=== PATIENT | female | born 1985 | race Caucasian/White ===

== ENCOUNTER 2018-06-20 05:40 | Emergency (ER) | payer MEDICARE, MEDICAID ==
[~2018-06-20] VITALS: Ht 160 cm; Wt 52.2 kg
[2018-06-20] MEDS ORDERED: CLONAZEPAM 1 MG1 M1 PO (05:51)
[2018-06-20] MEDS ORDERED: HYDROXYZINE HCL25 M1 PO (05:52)
[2018-06-20 06:17] LABS: BE -12.8 mmol/L (-2 to +3); PO2 61.1 mmHg (75.0-100.0)
[2018-06-20 06:45] LABS: HEMATOCRIT 21.3 % (37.0-47.0); MCH 35.9 pg (26.0-34.0); MCHC 31.6 g/dL (28.0-37.0); MCV 113.7 fL (80.0-100.0); MPV 8.5 fl. (7.2-11.1); NUCLEATED RBCS 0 /100WBC; PLATELET COUNT* 95 thou/uL (150-400); RBC 1.87 mil/uL (4.20-5.00); RDW-CV 14.5 % (10.5-14.5); WBC 11.2 thou/uL (4.0-11.0)
[2018-06-20 06:48] LABS: HEMOGLOBIN 6.7 gm/dL (12.0-15.0)
[2018-06-20 07:04] LABS: ANION GAP 23 mmol/L (7-16); BUN 22 mg/dL (7-18); CHLORIDE 97 mmol/L (98-107); CO2 16 mmol/L (21-32); CREATININE 2.5 mg/dL (0.6-1.3); SODIUM 136 mmol/L (136-145); TROPONIN-I LEVEL <0.06 ng/mL (<0.06)
[2018-06-20 07:07] LABS: ALBUMIN 1.1 g/dL (3.4-5.0); ALKALINE PHOSPHATASE 165 U/L (46-116); AMMONIA 141 umol/L (11-32); LIPASE 29 U/L (73-393); NT-PRO BRAIN NAT PEPTIDE 10098 pg/mL (<300); SGOT 504 U/L (15-37); SGPT 149 U/L (30-65); TOTAL BILIRUBIN 16.7 mg/dL (<0.1-1.0); TOTAL PROTEIN 4.5 g/dL (6.4-8.2)
[2018-06-20 07:09] LABS: GLUCOSE 27 mg/dL (70-99); POTASSIUM 3.4 mmol/L (3.5-5.1)
[2018-06-20 07:22] LABS: PROTIME > 210.1 Seconds (9.20-11.50)
[2018-06-20 07:23] LABS: ABSOLUTE LYMPHOCYTES 1.3 thou/uL (0.8-5.3); ABSOLUTE MONOCYTES 0.2 thou/uL (0.0-1.2); ABSOLUTE NEUTROPHILS 9.6 thou/uL (1.6-8.1); ATYPICAL LYMPHS 5 %; MICROCYTES 2+; PLATELET ESTIMATE DECREASED
[2018-06-20 07:24] LABS: INR > 18.0
[2018-06-20 07:28] LABS: MAGNESIUM 2.2 mg/dL (1.8-2.4)
[2018-06-20 09:37] LABS: URINE BLOOD 3+ (Negative); URINE CLARITY CLEAR; URINE COLOR YELLOW; URINE GLUCOSE-RANDOM TRACE (Negative); URINE KETONES TRACE (Negative); URINE LEUKOCYTES-REFLEX 1+ (Negative); URINE NITRITE-REFLEX NEGATIVE (Negative); URINE PROTEIN 2+ (Negative); URINE SPECIFIC GRAVITY 1.025 (1.005-1.030); URINE UROBILINOGEN 0.2 E.U./dl (0.2-1.0)
[2018-06-20 09:41] LABS: ICTOTEST (BILI CONFIRMATORY) Positive (Negative); URINE BILIRUBIN 3+ (Negative)
[2018-06-20 09:48] LABS: AMP/METHAMP Negative (Negative); BACTERIA-REFLEX >30 Many /HPF (None Seen); BARBITURATES Negative (Negative); BENZODIAZEPINES Negative (Negative); COCAINE Negative (Negative); METHADONE Negative (Negative); MUCUS 4-6 Moderate strn/LPF (None Seen); OPIATES Negative (Negative); PCP Negative (Negative); RENAL EPITHELIAL CELLS 4-10 Moderate /LPF (None Seen); SQUAMOUS >10 Many /LPF (0-3); THC Negative (Negative); URINE RBC >20 Many /HPF (0-2); URINE WBC-REFLEX >25 Many /HPF (0-5)
[2018-06-20 09:49] LABS: CRYSTALS None Seen /LPF (None Seen); HYALINE CASTS 4-10 Moderate /LPF (None Seen)
[2018-06-20 10:48] VITALS: BP 92/59
--- NOTE | 2018-06-20 15:07 | EKG ---
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 : 1985 Requested By: Sosa Siegel Order Number: [id number] MD: Lele Hughes Measurements Intervals [place] Rate: 88 P: 66 FL: 151 QRS: 79 QRSD: 122 T: 81 QT: 418 QTc: 506 Interpretive Statements Sinus rhythm Nonspecific intraventricular conduction delay Nonspecific T abnormalities, lateral leads Baseline wander in lead(s) V6 No previous ECG available for comparison Electronically Signed On 06-20-2018 15:07:22 CDT by Lele Hughes [email or web address] <ELECTRONICALLY SIGNED> By: Lele Hughes MD, [facility] 06/20/18 1507 D: 03642 2 Lele Hughes MD, FACC /EPI
--- NOTE | 2018-06-21 07:20 | EKG ---
[place] [address] ELECTROCARDIOGRAM REPORT Name: SANDRA VASQUEZ Ari Room: 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 : 1985 Requested By: German Berman Order Number: [id number] MD: Temo Guzman Measurements Intervals [place] Rate: 95 P: 0 DE: 49 QRS: 82 QRSD: 147 T: 202 QT: 356 QTc: 448 Interpretive Statements Sinus rhythm artifact noted Nonspecific intraventricular conduction delay Repol abnrm, severe global ischemia (LM/MVD) Baseline wander in lead(s) I,II,aVR,aVL,aVF,V1,V2,V3,V4,V5,V6 Compared to ECG 06/20/2018 06:43:43 artifact noted Electronically Signed On 06-21-2018 7:20:00 CDT by Temo Guzman [email or web address] <ELECTRONICALLY SIGNED> By: Temo Guzman MD, FACC 06/21/18 0720 2 2 Temo Guzman MD, FAC /EPI
== END 2018-06-20 10:48 | disposition short-term general hospital (02) ==
LOC: M.ERS 05:40
PROVIDERS: Emergency Medicine
DX: A41.9 Sepsis, unspecified organism (principal); R65.21 Severe sepsis with septic shock; D64.9 Anemia, unspecified; K72.90 Hepatic failure, unspecified without coma; J18.9 Pneumonia, unspecified organism; N17.9 Acute kidney failure, unspecified; G93.41 Metabolic encephalopathy